=== PATIENT | female | born 1995 | race Caucasian/White ===

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

== ENCOUNTER 2017-07-06 23:30 | Emergency (ER) | payer OTHER ==
--- NOTE | 2017-07-06 23:37 | EDPHY ---
H & P Time Seen by Provider: 07/06/17 23:31 HPI/ROS: Chief Complaint: Alcohol intoxication, vomiting HPI: 21-year-old female who was found on the health intoxicated. Patient passed out after drinking. Is unable to ambulate on their own. Patient brought in by EMS for further evaluation. No obvious signs of trauma per EMS. Remainder of history is unobtainable secondary to the patient's intoxication. When asked where she is patient states "as if, duh" ROS: Unobtainable secondary to the patient's intoxication PMH: Denies Medications: Denies Allergies: Denied Social History: Positive for alcohol Family History: non-contributory Physical Exam: Gen: Somnolent, responds to painful stimuli, maintaining airway, smells of alcohol and emesis HEENT: Atraumatic Nose: no epistaxis or deformity Eyes: PERRLA, EOMI Mouth: Moist mucosa Neck: Supple, no step-offs or deformity Chest: Atraumatic, lungs clear to auscultation Heart: S1, S2 normal, no murmur Abd: Soft, non-tender, no guarding Back: Atraumatic Ext: no edema, atraumatic Skin: no rash Neuro: Sensation grossly intact, Strength 5/5 in bilateral upper and lower extremities - Medical/Surgical History Hx Asthma: No Hx Chronic Respiratory Disease: No Hx Diabetes: No Hx Cardiac Disease: No Hx Renal Disease: No Hx Cirrhosis: No Hx Alcoholism: No Hx HIV/AIDS: No Hx Splenectomy or Spleen Trauma: No Other PMH: depression - Social History Smoking Status: Never smoked Constitutional: Initial Vital Signs Temperature (C) 36.7 C 07/06/17 23:35 Heart Rate 98 07/06/17 23:35 Respiratory Rate 16 07/06/17 23:35 Blood Pressure 116/68 07/06/17 23:35 O2 Sat (%) 98 07/06/17 23:35 O2 Delivery Mode Nasal Cannula O2 (L/minute) 2 Allergies/Adverse Reactions: Penicillins Allergy (Verified 10/17/16 14:09) Home Medications: Medication Instructions Recorded Bcp 10/17/16 DULoxetine 10/17/16 LAMOTRIGINE 10/17/16 VYVANSE 10/17/16 traZODone 10/17/16 Medical Decision Making ED Course/Re-evaluation: Patient is now awake and appropriate. Ambulating unassisted to the bathroom. No current complaints. Medically cleared for discharge. Departure - Departure Disposition: Home, Routine, Self-Care Clinical Impression: Alcoholic intoxication Condition: Good Instructions: Alcohol Intoxication (ED) Referrals: Patient,NotPresent [Primary Care Provider] - As per Instructions
[2017-07-07 01:41] VITALS: RESP 18
[2017-07-07 06:06] VITALS: BP 103/69; PULSE 82; TEMP 98.2; O2SAT 95
== END 2017-07-07 06:05 | disposition home or self-care (01) ==
LOC: EDUNIT#
DX: F10.129 Alcohol abuse with intoxication, unspecified (principal)